=== PATIENT | female | born 1995 | race Caucasian/White ===

== ENCOUNTER 2017-02-07 08:15 | Day surgery (SDC) | payer BC ==
[~2017-02-07 08:15] MED LIST: BSS OPTH.SOL* BTL ONE; Buffered Lidocaine 0.9% SYRIN* 5 ML/SYR SYRINGE INTRADERM ONE; Neomycin/Polymy/Dex OPHTH.OIN* 3.5 GM ONE; Phenylephrine 2.5% OPTH.SOL* 2 ML BTL ONE; Povidone Iodine 5% OPTH* 30 ML BTL ONE; Tetracaine 0.5% OPTH.SOL 4 ML* 1 DROP BTL ONE
[2017-02-07] MEDS ORDERED: Midazolam* 1 MG/ML 2 ML VIAL (2 MG) ONE (09:02)
[2017-02-07] MEDS ORDERED: fentaNYL* 50 MCG/ML 2 ML VIAL (100 MCG VIAL) ONE ×2 (09:02→10:40)
[2017-02-07] MEDS ORDERED: BSS OPTH.SOL* BTL ONE (09:14)
[2017-02-07] MEDS ORDERED: Famotidine IV* 10 MG/ML 2 ML (20 mg) ONE (09:19)
[2017-02-07] MEDS ORDERED: Dexamethasone IV* 4 MG/ML 1 ML (4 MG) ONE (09:38)
[2017-02-07] MEDS ORDERED: Propofol* 10 MG/ML 20 ML BTL IV PUSH ONE (09:38)
[2017-02-07] MEDS ORDERED: Ondansetron INJ* 2 MG/ML VIAL ONE (09:38)
[2017-02-07] MEDS ORDERED: Ketorolac INJ* 30 MG/ML 1 ML VIAL ONE (09:38)
[2017-02-07] MEDS ORDERED: Lidocaine 2% PF * 5 ML VIAL ONE (09:38)
[2017-02-07] MEDS ORDERED: DiMENhydriNATE IV* 50 MG/ML VIAL IV PUSH PRN (09:43)
[2017-02-07] MEDS ORDERED: HYDROcodone/ACETAMIN 5-325 MG* 1 TAB PO PRN (09:43)
[2017-02-07] MEDS ORDERED: PROCHLORPERAZINE INJ 5 MG/ML 2 ML VIAL IV PRN (09:43)
[2017-02-07] MEDS ORDERED: fentaNYL* 50 MCG/ML 2 ML VIAL (100 MCG VIAL) IV PRN (09:43)
[2017-02-07] MEDS ORDERED: Ondansetron INJ* 2 MG/ML VIAL IV PRN (09:43)
[2017-02-07] MEDS ORDERED: Acetaminophen TAB* 325 MG PO SCH (10:00)
[2017-02-07] MEDS ORDERED: DiMENhydriNATE IV* 50 MG/ML VIAL ONE (10:40)
[2017-02-07] MEDS ORDERED: HYDROcodone/ACET. 7.5/325 LIQ* 15 ML UDC ONE (11:52)
[2017-02-07] MEDS ORDERED: HYDROcodone/ACET. 7.5/325 LIQ* 15 ML UDC PO PRN (12:09)
[2017-02-07 12:14] VITALS: BP 114/66
--- NOTE | 2017-02-08 00:56 | OP ---
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 OPERATIVE PROCEDURE: Recess each medial rectus muscle 5.5 mm. COMPLICATIONS: None. BLOOD LOSS: Minimal. DESCRIPTION OF PROCEDURE: The patient was brought to the operating room and received general anesthesia without any complications. A drop of tetracaine was placed in each eye. She was prepped and draped in the usual sterile fashion for ophthalmic surgery and attention was directed to the right eye where a speculum was placed. Forced ductions were performed and found to show slight restriction to abduction. The eye was grasped in the inferonasal quadrant at the limbus and brought to the superotemporal gaze. An inferonasal fornix incision was created with a Maximo scissor. Tenon's capsule was violated and a large Bhavik muscle hook was used to isolate the medial rectus muscle. The conjunctiva was reflected off the surface of the muscle and the check ligament was opened. The muscle was cleaned with sharp and blunt dissection. A double arm 6-0 Vicryl suture was woven to the muscle near its insertion and locked at either end. The muscle was disinserted from the globe of the Maximo scissor. The original insertion site was grasped with locking forceps. The muscle was inspected and found to be intact on the sutures. A gustavo was made with a caliper 5.5 mm posterior to the original insertion. The muscle was recessed to this point and tied securely. Again, the muscle was inspected and found to be without bleeding in good position. The locking forceps were removed and gentle cauterization at this point was used to achieve hemostasis. The conjunctiva was then closed with interrupted 6-0 gut sutures. The speculum was removed and placed in the contralateral eye. Here, forced ductions were again performed showing mild limitation to abduction. The same procedure was performed, that is a 5.5 mm recession of the medial rectus muscle through a fornix incision. At the end of the case, forced ductions appeared more normal and the eyes appeared straight. There was no active bleeding. Topical tetracaine followed by Maxitrol ointment was placed on the surface of each eye. The patient was sent to the recovery room in stable condition with postoperative instructions and followup appointment given. [id number] #: [id number] ROLANDA
== END 2017-02-07 12:14 | disposition home or self-care (01) ==
LOC: OREAST 08:15
PROVIDERS: ATTEND Ophthalmology
DX: H50.05 Alternating esotropia (principal); Z87.891 Personal history of nicotine dependence; E53.8 Deficiency of other specified B group vitamins; F41.9 Anxiety disorder, unspecified; M19.90 Unspecified osteoarthritis, unspecified site
CPT/HCPCS: 81025; A9270-GY; J1100; J1240; J1885; J2250; J2405; J2704; J3010